=== PATIENT | male | born 1995 | race Caucasian/White ===

== ENCOUNTER 2016-11-08 19:13 | Emergency (ER) | payer OTHER ==
[~2016-11-08] VITALS: Ht 177.8 cm; Wt 68.0 kg
[2016-11-08 19:28] VITALS: BP 121/78
--- NOTE | 2016-11-08 19:49 | NUR ---
PT TAKEN TO [facility] FROM [facility]
--- NOTE | 2016-11-08 22:01 | NUR ---
PT BIB SELF C/O RT ELBOW PAIN S/P FALL FROM FENCE 2 NIGHTS AGO. NO LOC/KO, CAP MREFILL-IMM, PT DENIES N/V/D; SKIN IS INTACT, PINK/WARM/DRY; AAOX4, PERRL, WITH EVEN AND STEADY GAIT; LUNGS CLEAR BL, BREATHING UNLABORED; HR EVEN AND REGULAR, BL PERIPHERAL PULSES PRESENT; BS ACTIVE X4, NO TENDERNESS TO PALPATION. PT DENIES ANY FEVER, CP, SOB, OR COUGH AT THIS TIME; PT STATES 5/10 PAIN AT THIS TIME; VSS; PATIENT POSITIONED FOR COMFORT; HOB ELEVATED; BEDRAILS UP X2; BED DOWN. PT EVAL BY MIKI ACE.
--- NOTE | 2016-11-08 22:09 | NUR ---
PT TAKEN TO OF
--- NOTE | 2016-11-08 22:13 | NUR ---
Dr. Vasquez evaluating patient
[2016-11-08 23:04] VITALS: BP 121/78
== END 2016-11-08 22:35 | disposition home or self-care (01) ==
LOC: MED 19:13
DX: S50.01XA Contusion of right elbow, initial encounter (principal); W19.XXXA Unspecified fall, initial encounter; Y93.89 Activity, other specified; Y92.89 Other specified places as the place of occurrence of the external cause; Y99.8 Other external cause status